=== PATIENT | female | born 1960 | race Caucasian/White ===

== ENCOUNTER → 2023-03-11 | Outpatient (CLI) | payer MEDICAID, SELFPAY ==
--- NOTE | 2023-03-11 14:25 | EMB_PTH ---
PATIENT: ANTOINE GALARZA [facility] U#:[id number] AGE/SX: 62/F ROOM: RE03/11/[address]: KRZYSZTOF Stewart : 1960 BED: DIS: 03/11/2023 SPEC #: [id number] RECD: 03/11/23 15:24 STATUS: CINDY REStnaislav #: [id number] MAKI: 03/11/23 14:[address]: Tammy Escobar NP DEPT: SURGICAL PATHOLOGY RECD BY: Krystal Peña ENTERED: 03/12/23 10:03 SP TYPE: ENDOM BX/C SANDRA DR: KRZYSZTOF Arriaga Tissues: A - Endometrium, NOS B - Uterine cervix, NOS Procedures: Surgery Specimen Level IV HEADER OPERATION: Endometrial biopsy, Polypectomy PRE-OP DIAGNOSIS: Abnormal uterine bleeding TISSUE SUBMITTED: A - Endometrial lining, B - Cervical polyp MICROSCOPIC DIAGNOSIS A. Endometrial biopsy: Strips of benign endometrial epithelium and fragments of superficial benign endometrial tissue, blood and mucous. B. Cervical polyp, polypectomy: Inflamed benign mixed ecto- and endocervical polyp. DAWIT:sandra 03/13/2023 MICROSCOPIC DESCRIPTION Slides are reviewed. GROSS DESCRIPTION A - Received in fixative is one container labeled with the patient's name and designated endometrial lining. The specimen consists of multiple irregular fragments of pink mucoid tissue that in aggregate measure 2.5 x 0.5 x 0.1 cm. The specimen is totally submitted in one cassette. B - Received in fixative is one container labeled with the patient's name and designated cervical polyp. The specimen consists of a harris-pink polyp measuring 2.8 x 0.5 x 0.3 cm. The entire specimen is submitted in one cassette. / DAWIT:sandra 03/12/2023 TC:5 CPT: [id number] x2
[2023-03-18 06:07] LABS: HPV APTIMA, High Risk Positive (Negative); HPV Genotype 16, Aptima Negative (Negative); HPV Genotype 18,45 Aptima Negative (Negative)
== END | disposition home or self-care (01) ==
LOC: LABSPEC 15:48
PROVIDERS: PCP Nurse Practitioner Family; Referring Provider Nurse Practitioner Women's Health; Visit Provider Nurse Practitioner Women's Health
DX: Z12.4 Encounter for screening for malignant neoplasm of cervix (principal); N93.9 Abnormal uterine and vaginal bleeding, unspecified; N84.1 Polyp of cervix uteri
CPT/HCPCS: 87624; 88175; 88305; G0145

== ENCOUNTER → 2023-04-02 | Outpatient (CLI) | payer MEDICAID, SELFPAY ==
--- NOTE | 2023-04-02 14:59 | US_ITS ---
STUDY: ULTRASOUND OF THE FEMALE PELVIS - COMPLETE REASON FOR EXAM: Female, 62 years old. postmenopausal bleeding LMP: TECHNIQUE: Transabdominal and Transvaginal TECHNICAL QUALITY: Adequate. COMPARISON: None. FINDINGS: The uterus is anteverted and is in a midline position. The uterus measures 7.5 x 3.4 x 2.5 cm. Normal uterine cervix. The endometrium measures 1.5 mm in thickness, and is hyperechoic. There is no demonstrated endometrial mass. Diffusely heterogeneous uterus suggestive of diffuse leiomyomatous change. Focal fibroids are seen measuring 1.1 and 1.6 cm. The right ovary is visualized. The right ovary measures 2.3 x 1.2 x 0.7 cm. There is no right ovarian cyst or ovarian mass. There is no visualized right adnexal mass or complex lesion. There is normal arterial and normal venous vascularity. The left ovary is visualized. The left ovary measures 1.8 x 1.2 x 0.9 cm. There is a 1.1 cm cyst. There is no visualized left adnexal mass or complex lesion. There is normal arterial and normal venous vascularity. There is no fluid in the cul-de-sac. The pre void volume of the bladder was 396 ml. US/Transvaginal Non- IMPRESSION: Possible diffuse leiomyomatous change of the uterus with some small focal fibroids. Electronically Signed: Sherman Gordon MD at 18:14 EST ,
--- OUTSIDE RECORDS SUMMARY | 2023-04-02 17:38 | XMS RPT_ITS | CCD ---
Author Name Unknown Address [address] [place] [address] Organization [facility] Care Team Providers Care Commercial Loan Underwriter Name Role Phone Unavailable Primary Care Provider UnavailJIMMY Nye Attending Unavailable JIMMY OWEN Primary Care Unavailable GABBIE OSMAN DIRECTOR OF ENTERTAINMENT Consulting Unavailab le JIMMY OWEN Admitting Unavailable PROVIDER, UNKNOWN Consulting Unavailable PROVIDER, UNKNOWN Consulting Unavailable OWEN, JIMMY Primary Care Unavailable OWEN, JIMMY Admitting Unavailable MURALI, DR YIMI WILLIAMSON Consulting UnavailJIMMY Nye Attending Unavailable PROVIDER, UNKNOWN Consulting Unavailable PROVIDER, UNKNOWN Consulting Unavailable PROVIDER, UNKNOWN Consulting Unavailable OWEN, JIMMY Primary Care Unavailable OWEN, JMIMY Admitting Unavailable MURALI, DR YIMI WILLIAMSON Consulting Unavailabl e JIMMY OWEN Attending Unavailable PROVIDER, UNKNOWN Consulting Unavailable PROVIDER, UNKNOWN Consulting Unavailable PROVIDER, UNKNOWN Consulting Unavailable OWEN, JIMMY Primary Care Unavailable OWEN, JIMMY Admitting Unavailable MURALI, DR YIMI WILLIAMSON Consulting Unavailabl e BRAYDEN JIMMY Attending Unavailable PROVIDER, UNKNOWN Consulting Unavailable PROVIDER, UNKNOWN Consulting Unavailable PROVIDER, UNKNOWN Consulting Unavailable OWEN, JIMMY Primary Care Unavailable BRAYDEN, JIMMY Admitting Unavailable GABBIE OSMAN DIRECTOR OF ENTERTAINMENT Consulting Unavailab le JIMMY OWEN Attending Unavailable PROVIDER, UNKNOWN Consulting Unavailable PROVIDER, UNKNOWN Consulting Unavailable Allergies Allergy Classification Reported Allergen(s) Allergy Type Date of Onset Reaction(s) Facility (1 source) diphenhydrAMINE Drug Allergy [facility] Repository (1 source) Penicillin Drug Allergy [facility] Repository Problems Problem Classification Problem Date Documented Da te Episodic/Chronic Abdominal hernia (6 sources) Umbilical hernia without obstruction or gangrene; Translations: [Unilateral inguinal hernia, without obstruction or gangrene, not specified as recurrent] Onset: 02-13-2022 Episodic Results Test Name Value Interpretation Reference Range Facil ity Encounters Encounter Date Encounter Type Care Provider Facility Start: 03-22-2022 End: 03-22-2022 ambulatory JIMMY OWEN [facility] Start: 03-02-2022 End: 03-02-2022 ambulatory JIMMY OWEN [facility] Start: 02-13-2022 End: 02-13-2022 ambulatory JIMMY OWEN [facility] Start: 12-28-2021 Telephone encounter Carolina faye DO Work Phone: [facility] Obstetrics and Gynecology Plan of Treatment Date Care Activity Detail Author Start: 11-30-2021 Influenza vaccination INFLUENZA (#1) [facility] Start: 04-01-2021 DEPRESSION ASSESSMENT DEPRESSION ASS ESSMENT [facility] Start: 2011 SHINGRIX VACCINE (1 of 2) SHINGRIX V ACCINE (1 of 2) [facility] Start: 2006 COLOGUARD (FIT-DNA) COLOGUARD (FIT-D NA) [facility] Start: 2006 Colonoscopy COLONOSCOPY [facility] Start: 2006 COLORECTAL CANCER SCREENING COLORECTAL CANCER SCREENING [facility] Start: [address] [facility] Start: 2006 DIABETES SCREEN DIABETES SCREEN [facility] Start: 2006 FECAL OCCULT BLOOD FECAL OCCULT BLOO D [facility] Start: 2006 LIPID SCREEN LIPID SCREEN [facility] Start: 2006 SIGMOIDOSCOPY SIGMOIDOSCOPY [facility] Start: 2001 Mammography MAMMOGRAM [facility] Start: 1991 HPV TESTING HPV TESTING [facility] Start: 1982 PAP TESTING PAP TESTING [facility] Start: 1980 Urine microalbumin profile DTAP,TDAP ,TD (1 - Tdap) [facility] Start: 1979 HEPATITIS C SCREENING HEPATITIS C SC REENING [facility] Start: 1979 HIV SCREENING HIV SCREENING [facility] Start: 1961 COVID-19 VACCINE (#1) COVID-19 VACCI NE (#1) [facility] Payers Date Payer Category Payer Medicaid [id number] 1960 Unknown [id number] 1960 Unknown [id number] 1960 Unknown [id number] [id number] 1960 Unknown [id number] [id number] 1960 Unknown [id number] Social History Date Type Detail [facility] Start: 1960 Sex Assigned At Not on file C [facility] Clinical Note 03-12-2022 Note Date & Type Note Facility 03-12-2022 Note [facility] CONSULTATION REPORT NAME ACCOUNT SEX AGE ADMIT DISCHARGE PT MED. RECORD# NUMBER DATE DATE TYPE LULU MEEKS [id number] F [id number] 2 [id number] ROOM: DATE OF : 1960 DICTATING PHYSICIAN: Jimmy Owen REASON FOR CONSULTATION: Lulu Meeks is a 61-year-old lady who has had concern about umbilical hernia. HISTORY OF PRESENT ILLNESS: She had a CAT scan done. Returned for evaluation and discussion of her CAT scan results. The CT showed that she has an umbilical hernia with fat with an orifice of approximately 18 mm. In addition, she has bilateral inguinal hernias which have fat. The left is larger than the right. The orifice is 20 mm. She has no other worrisome findings. RECOMMENDATIONS: I reviewed the findings with her and I have explained to her repair of these hernias individually versus at one hospitalization. She wishes to have them all 3 done and I have explained the possibility of mesh versus other surgical repair. I have explained the surgery is done under anesthesia. I have explained the very urgent need for good pain control postoperatively. I have explained the surgical risks may include such risks as bleeding, pain, infection, scarring, damage to surrounding tissues, recurrence. I have explained possible mesh placement. I have explained the postoperative restrictions, activities, diet, medications, and followup plan and patient appears to understand. She states she wishes to have all three hernias done at one setting and arrangements will be made for this. She has no further questions. Dictated By: Jimmy Owen MD 03/11/2022 19:22 JOB #: [id number] Transcribed By: aubrey 03/11/2022 19:43 Electronically signed by: E-Sign Dr. 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 Received referral from patients pcp, i called patient to schedule but she said she was actually wanting to go to [place] so i told patient to go ahead and call her pcp to have then sent the referral to an OBGYN in [place]. documented in this encounter [facility] Summary Purpose Family History No Family History Records FoundNo Family History Records FoundNo Family History Records Found Advance Directives No Advanced Directives Records FoundNo Advanced Directives Records FoundNo Advanced Directives Records Found Additional Source Comments Source Comments (unrecognize d section and content) In the event this informatio n is protected by the Federal Confidentiality of Alcohol and Drug Abuse Patient Records regulations: The Federal rules restrict any use of the information to criminally investigate or prosecute any alcohol or drug abuse patient.[facility] Reason for Visit (unrecogniz ed section and content) INFORMATION SOURCE (unrecogn ized section and content) DATE CREATED AUTHOR AUTHOR'S ORGANIZ ATION 03/25/2022 [facility] DATE CREATED AUTHOR AUTHOR'S ORGANIZ ATION 03/28/2022 [facility] ([place]) FOR RECORDS PERTAINING TO PATIENTS WHO ARE OR HAVE BEEN ENROLLED IN A CHEMICAL DEPENDENCY/SUBSTANCEABUSE PROGRAM, SOME INFORMATION MAY BE OMITTED. This clinical summary was aggregated from multiple sources. Caution should be exercised in using it in the provision of clinical care. This summary normalizes information from multiple sources, and as a consequence, information in this document may materially change the coding, format and clinical context of patient data. In addition, data may be omitted in some cases. CLINICAL DECISIONS SHOULD BE BASED ON THE PRIMARY CLINICAL RECORDS. [facility]. provides no warranty or guarantee of the accuracy or completeness of information in this document.
== END | disposition home or self-care (01) ==
PROVIDERS: PCP Nurse Practitioner Family; Referring Provider Nurse Practitioner Women's Health; Visit Provider Nurse Practitioner Women's Health
DX: N95.0 Postmenopausal bleeding (principal); N84.1 Polyp of cervix uteri
CPT/HCPCS: 76830; 76856

== ENCOUNTER 2024-06-05 12:42 | Observation (INO) | payer MEDICAID, SELFPAY ==
--- NOTE | 2024-05-28 09:22 | EKG12_ITS ---
Test Reason : PRE OP Blood Pressure : */* mmHG Vent. Rate : 70 BPM Atrial Rate : 70 BPM P-R Int : 140 ms QRS Dur : 64 ms QT Int : 386 ms P-R-T Axes : 33 13 20 degrees QTcB Int : 416 ms Normal sinus rhythm Low voltage QRS Borderline ECG Confirmed by Hank Montano ([id number]), material expeditor ELBA LIZARRAGA ([id number]) on 05/29/2024 5:58:29 AM Referred By: Alice Cross Confirmed By: Hank Montano
[2024-05-28 10:03] LABS: Hematocrit 38.8 % (37-47); Hemoglobin 12.9 g/dL (12.0-15.0); Mean Corp Hgb Conc 33.2 g/dL (32-36); Mean Corpuscular Hgb 28.9 pg (27.0-32.0); Mean Platelet Vol. 10.1 fl (6.2-12.0); Platelet Count 282 K/mm3 (150-450); RBC Distribution Width CV 14.4 % (11.6-14.6); Red Blood Count 4.46 M/mm3 (4.2-5.4); White Blood Count 6.2 K/mm3 (4.4-11.0)
[2024-05-28 11:26] LABS: ALB/GLOB Ratio 1.5 RATIO (0.9-2.4); AST(SGOT) 30 U/L (<=31); Alanine Aminotransfer ALT/SGPT 30 U/L (<=34); Albumin, Serum 4.1 g/dL (3.4-4.8); Alkaline Phosphatase 61 U/L (35-104); Anion Gap 9 (5-15); BUN 14 mg/dL (4-19); BUN/Creat Ratio 15.8 RATIO (10-20); Calcium 9.2 mg/dL (7.6-11.0); Carbon Dioxide 25.5 mmol/L (22.0-29.0); Chloride 105 mmol/L (96-108); Creatinine, Serum 0.9 mg/dL (0.6-1.0); EST Glomerular Filtration Rate 74 (>60); Globulin 2.7 g/dL (2.2-4.2); Glucose 96 mg/dL (70-99); Potassium 4.1 mmol/L (3.3-5.1); Protein, Total 6.9 g/dL (5.9-8.4); Sodium Level 139 mmol/L (133-145); Total Bilirubin 0.52 mg/dL (0.00-1.30)
[2024-05-28 13:11] LABS: Magnesium 2.3 mg/dL (1.5-2.2)
--- NOTE | 2024-05-28 21:49 | PAT.ANE_ITS ---
Pre-Assessment Diagnosis/Proposed Procedure Planned Operative Procedure(s): TOTAL VAGINAL HYSTERECTOMY BSO POSS BILAT SALPINGOOPHERECTOMY PER DR QUARLES A&P REPAIR B SSLF CYSTO WITH BILAT URETHERAL CATH. PER DR FRIAS Anesthesia History Anesthesia History - air sampling and monitoring: Anesthesia History - air sampling and monitoring Hx Hospitalization No 05/25/24 08:51 Any Problems With Anesthesia Yes: SEVERE N,V 05/25/24 08:51 Cholinesterase deficiency No 05/25/24 08:51 You/Your Family Experience No 05/25/24 08:51 fever (hyperthermia) with Relationship Recent Exposure to Contagious Disease Does patient have nerve No 05/25/24 08:51 stimulator Patient instructed to have device shut off --Does patient have Pacemaker or ICD? When Was Last Pacemaker Check QUESTION #4 FULL TEXT: You/Your Family Experience fever (hyperthermia) with Anesthesia Last Oral Intake Last Oral intake: Last Oral Intake NPO since Meds taken in AM with sips of water? Meds patient instructed to take am of surgery PONV PONV - air sampling and monitoring: PONV - air sampling and monitoring Female Yes 05/25/24 08:51 HX of Motion Sickness No 05/25/24 08:51 HX of N/V After Surgery Yes 05/25/24 08:51 Non-Smoker Yes 05/25/24 08:51 Duration of Surgery greater Yes 05/25/24 08:51 than 60 minutes Number of Risk Factors 4 05/25/24 08:51 PONV Score Severe Risk 05/25/24 08:51 Height & Weight Height & Weight: Anesthesia: Height & Weight Height 5 ft 4 in 02/07/24 16:39 Respiratory Assessment Respiratory Assessment - air sampling and monitoring: Respiratory Tract Infection Hx - air sampling and monitoring Hx Respiratory Tract Infection No 05/25/24 08:51 STOP Sleep Apnea STOP Sleep Apnea - air sampling and monitoring: STOP Sleep Apnea - air sampling and monitoring Hx Hypertension No 05/25/24 08:51 Hx Sleep Apnea No 05/25/24 08:51 CPAP BIPAP Do you snore loudly (louder No 05/25/24 08:51 than talking or can be heard Do you often feel tired/ Yes 05/25/24 08:51 fatigued/ sleepy during daytime? Has anyone observed you stop No 05/25/24 08:51 breathing during sleep? STOP Results Negative 05/25/24 08:51 QUESTION #5 FULL TEXT : Do you snore loudly (louder than talking or can be heard through closed doors)? 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 Specify any problems Hx of Preganancy in last 3 No 05/25/24 08:51 Months Nurse Filling Out Transfusion DSCHRIBER 05/25/24 08:51 & Questions: Date: 05/25/24 05/25/24 08:51 Time: 08:53 05/25/24 08:51 Patient unable to answer at this time (ie. confused, unrespo /Reproduction History /Reproductive History - air sampling and monitoring: /Reproductive Hx- air sampling and monitoring Hx Now No 05/25/24 08:51 Gestational Age (in weeks): EDC: Hx Hx Para Hx Section SAB No 05/25/24 08:51 PFSH Medical History (Updated 05/25/24 @ 09:02 by Maki Riggs) Wears glasses Broken tooth Post-menopausal Anxiety Presence of pessary Bladder disease Migraine headache Injury of head and neck History of hiatal hernia Non-smoker Leg cramps History of pain when walking History of edema Meningitis GERD (gastroesophageal reflux disease) Scoliosis Home Medications ?Medication ?Instructions ?Recorded ?Last Taken ?Type THERMAMILL 1 cap PO DAILY 05/25/24 Unkn own History Allergy/AdvReac Type Severity Reaction Status Date / Time Penicillins Allergy Mild Rash Verified 05/25/24 08:46 diphenhydramine (From AdvReac Mild Other Verified 05/25/24 08:46 Benadryl) Family History Father Cancer Skin Aunt Cancer Skin Surgical History (Updated 05/25/24 @ 09:02 by Maki Riggs) Hx of ventral hernia repair S/P hernia repair H/O breast surgery S/P tonsillectomy Social History number of children: 2 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 Normal sinus rhythm. Low voltage QRS. Recommendation Anesthesia Recommendation Anesthesia recommendation: OPTIMIZED for anesthesia
--- NOTE | 2024-06-04 21:33 | HP.PCM_ITS ---
History and Physical Date of Admission: 06/05/24 Vital Signs 07/09/2413:47 02/07/2416:39 05/11/2514:13 Height 5 ft 4 in 5 ft 4 in 5 ft 4 in Weight: 160 lb 8 oz BMI 27.5 BP 138/85 H Intake Visit Reasons: Keep 20 min. TVHBS possible BSO Stefano combo Industrial Relations Specialist Required: No Is patient in pain?: No Allergies Penicillins Allergy (Mild, Verified 05/11/24 15:16) Rashdiphenhydramine (From Benadryl) Adverse Reaction (Mild, Verified 05/11/24 15:16) Other Medications ?Medication ?Instructions ?Recorded ?Confirmed ?Type doxycycline hyclate 50 mg capsule 50 mg PO QDAY 05/11/24 05/11/24 History Is last menstrual period known: No Post menopausal: Yes Patient : No : No PFSH Medical History Meningitis GERD (gastroesophageal reflux disease) Scoliosis Surgical History S/P hernia repair H/O breast surgery S/P tonsillectomy Family History Father Cancer SkinAunt Cancer Skin Social History number of children: 2 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 TVHBS possible LOTTIEO Stefano combo Details: ANTOINE GALARZA is a 63 year old who presents for preop visit, has uterovaginal prolapse, ready for surgery.combo case with stefano. Female Reproductive History Menopausal Symptoms: No night sweats History 2 Elective abortions Hx Para 2 Spontaneous abortions Hx # Term Pregnancies Ectopic pregnancies Hx # Pregnancies Multiple births # of living children 2 Past Pregnancies Del. Date Name GA/Weeks Outcome Route Bth Weight Infant Gen Labor Lgth Anesthesia Del Locatn Provider FOB Unknown Soila 1990 Unknown Martin 1992 ROS Const Constitutional: Denies fatigue, night sweats, weight gain or weight loss ENT ENT: Reports system reviewed and no additional complaints, except as documented Cardio Card: Denies chest pain Resp Resp: Denies cough or dyspnea GI GI: Reports as per HPI; Denies abdominal pain, constipation, nausea or vomiting : Reports urinary frequency and urinary incontinence; Denies nipple discharge, urinary hesitancy, urinary urgency, vaginal discharge, vaginal dryness, vaginal odor or vaginal pruritus Musc Musc: Denies arthralgias, back pain or muscle weakness Skin Skin/Breast: Denies alopecia, change in hair, dry skin, breast mass, breast pain, breast skin changes or nipple discharge Neuro Neuro: Reports system reviewed and no additional complaints, except as documented Psych Psych: Reports system reviewed and no additional complaints, except as documented Endo Endo: Denies cold intolerance, excessive sweating, heat intolerance or polydipsia Morales/Lymph Hematologic/Lymphatic: Denies easy bleeding, Denies easy bruising and Denies lymphadenopathy Exam Const General: cooperative and no acute distress Nutritional Appearance: well nourished Orientation: oriented x3 HENMT Head: normal to inspection and normocephalic Ears: hearing grossly normal bilaterally and external ears normal Nose: external nose normal and nares normal Face and sinus: normal facial exam Neck Neck: normal visual inspection and no lymphadenopathy Thyroid: thyroid normal Chest Chest palpation & inspection: normal inspection of the chest Resp Effort & Inspection: normal respiratory effort Auscultation: clear to auscultation bilaterally Cardio Rate: regular rate Rhythm: regular rhythm Heart Sounds: S1 normal and S2 normal GI Inspection: normal to inspection and non-distended Palpation: soft and no hepatosplenomegaly Musc Other: gross motor intact no deficits, full bilateral strength Skin General: no rashes or lesions noted Neuro General: patient alert, patient awake, moves all extremities and no focal motor deficits Motor: muscle tone normal throughout Extrem General: normal to inspection and no pedal edema Psych Appearance: grossly normal Mental Status: mental status grossly normal Affect: normal affect Speech and Movement: speech and movement normal Coding Level of Care Code No Charge Diagnoses Cystocele and rectocele with incomplete uterovaginal prolapse N81.2 Assessment and Plan Assessment and Plan (1) Cystocele and rectocele with incomplete uterovaginal prolapse: Status: Acute Comment: plan tvhbs combo case with stefano. Plan After discussing the patient's diagnosis and treatment plan options, patient wishes to proceed with surgical management. I have discussed with the patient the risks, benefits, and alternatives of the procedure which include but are not limited to risks of anesthesia, bleeding, infection, possible damage to bowel, bladder, or surrounding vasculature which could lead to additional surgery to evaluate any complications. Patient agrees to procedure and wishes to proceed. ACOG/uptodate references given for additional information regarding procedure.
[2024-06-05] VITALS (13 sets, daily range): BP systolic 104–136; BP diastolic 55–80; PULSE 53–71; RESP 12–17; TEMP 36.2–36.6; O2SAT 89–98; BMI 27.6
--- NOTE | 2024-06-05 09:29 | PRE.ANES_ITS ---
ASA Classification* ASA Classification ASA Classification: 2 Assessment & Plan Anesthesia* Anesthesia Assessment Anesthesia Assessment: Discussed sedation and/or anesthesia options, risks, benefits, and alternatives with patient/parents/legal guardian/POA. Questions invited. The patient/parents/legal guardian/POA seems to understand and agrees to proceed with anesthesia plan. Reviewed the physical assessment, medical history, allergy history and patient home medications list prior to surgery/procedure/anesthetic and documented any changes. Performed airway and anesthesia risk assessments. Anesthesia Type Anesthesia Type: General Anesthesia Focused Assessment* Airway Assessment Mouth opens: >3 cm Mallampati Score: II Focused Labs Anesthesia Preop lab: CBC WBC 6.2 K/mm3 (4.4-11.0) 05/28/24 09:43 05/28/24 RBC 4.46 M/mm3 (4.2-5.4) 05/28/24 09:43 05/28/24 Hgb 12.9 g/dL (12.0-15.0) 05/28/24 09:43 05/28/24 Hct 38.8 % (37-47) 05/28/24 09:43 05/28/24 Plt Count 282 K/mm3 (150-450) 05/28/24 09:43 05/28/24 CHEMISTRY Potassium 4.1 mmol/L (3.3-5.1) 05/28/24 09:43 05/28/24 Sodium 139 mmol/L (133-145) 05/28/24 09:43 05/28/24 Magnesium 2.3 mg/dL (1.5-2.2) H 05/28/24 09:42 05/28/24 BUN 14 mg/dL (4-19) 05/28/24 09:43 05/28/24 Creatinine 0.9 mg/dL (0.6-1.0) 05/28/24 09:43 05/28/24 Glucose 96 mg/dL (70-99) 05/28/24 09:43 05/28/24 COAG Pre-Assessment Diagnosis/Proposed Procedure Planned Operative Procedure(s): TOTAL VAGINAL HYSTERECTOMY BSO POSS BILAT SALPINGOOPHERECTOMY PER DR QUARLES A&P REPAIR B SSLF CYSTO WITH BILAT URETHERAL CATH. PER DR FRIAS Anesthesia History Anesthesia History - front office agent: Anesthesia History - front office agent Hx Hospitalization No 05/25/24 08:51 Any Problems With Anesthesia Yes: SEVERE N,V 05/25/24 08:51 Cholinesterase deficiency No 05/25/24 08:51 You/Your Family Experience No 05/25/24 08:51 fever (hyperthermia) with Relationship Recent Exposure to Contagious Disease Does patient have nerve No 05/25/24 08:51 stimulator Patient instructed to have device shut off --Does patient have Pacemaker or ICD? When Was Last Pacemaker Check QUESTION #4 FULL TEXT: You/Your Family Experience fever (hyperthermia) with Anesthesia Last Oral Intake Last Oral intake: Last Oral Intake NPO since Meds taken in AM with sips of water? Meds patient instructed to take am of surgery PONV PONV - front office agent: PONV - front office agent Female Yes 05/25/24 08:51 HX of Motion Sickness No 05/25/24 08:51 HX of N/V After Surgery Yes 05/25/24 08:51 Non-Smoker Yes 05/25/24 08:51 Duration of Surgery greater Yes 05/25/24 08:51 than 60 minutes Number of Risk Factors 4 05/25/24 08:51 PONV Score Severe Risk 05/25/24 08:51 Height & Weight Height & Weight: Anesthesia: Height & Weight Height 5 ft 4 in 06/04/24 10:07 Weight: 71.668 kg 06/04/24 10:07 Respiratory Assessment Respiratory Assessment - front office agent: Respiratory Tract Infection Hx - front office agent Hx Respiratory Tract Infection No 05/25/24 08:51 STOP Sleep Apnea STOP Sleep Apnea - front office agent: STOP Sleep Apnea - front office agent Hx Hypertension No 05/25/24 08:51 Hx Sleep Apnea No 05/25/24 08:51 CPAP BIPAP Do you snore loudly (louder No 05/25/24 08:51 than talking or can be heard Do you often feel tired/ Yes 05/25/24 08:51 fatigued/ sleepy during daytime? Has anyone observed you stop No 05/25/24 08:51 breathing during sleep? STOP Results Negative 05/25/24 08:51 QUESTION #5 FULL TEXT : Do you snore loudly (louder than talking or can be heard through closed doors)? 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 Specify any problems Hx of Preganancy in last 3 No 05/25/24 08:51 Months Nurse Filling Out Transfusion DSCHRIBER 05/25/24 08:51 & Questions: Date: 05/25/24 05/25/24 08:51 Time: 08:53 05/25/24 08:51 Patient unable to answer at this time (ie. confused, unrespo /Reproduction History /Reproductive History - front office agent: /Reproductive Hx- front office agent Hx Now No 05/25/24 08:51 Gestational Age (in weeks): EDC: Hx Hx Para Hx Section SAB No 05/25/24 08:51 Active Medications Active Medications: Current Medications Generic Name Dose Route Start Last Admin Trade Name Freq PRN Reason Stop Dose Admin Acetaminophen 1,000 mg 06/05/24 11:30 Acetaminophen 500 Mg Tablet PO 06/05/24 11:31 PREOP ONE Celecoxib 400 mg 06/05/24 11:30 Celecoxib 200 Mg Capsule PO 06/05/24 11:31 X1 ONE Dexamethasone Sodium Phosphate 8 mg 06/05/24 11:30 Dexamethasone 4 Mg/Ml Vial IV 06/05/24 11:31 X1 ONE Enoxaparin Sodium 40 mg 06/05/24 11:30 Enoxaparin 40 Mg/0.4 Ml Syringe SC 06/05/24 11:31 X1 ONE Gabapentin 600 mg 06/05/24 11:30 Gabapentin 600 Mg Tablet PO 06/05/24 11:31 PREOP ONE Lactated Ringer's 1,000 mls @ 40 mls/hr 06/05/24 11:30 IV .Q25H ALPHONSE Gentamicin Sulfate 270 mg/ 56.75 mls @ 100 mls/hr 06/05/24 11:30 Dextrose IVPB 06/05/24 12:04 PREOP ONE Magnesium Sulfate 1 gm/ 102 mls @ 408 mls/hr 06/05/24 11:30 Dextrose IV 06/05/24 11:44 X1 ONE Clindamycin Phosphate 900 mg in 50 mls @ 75 mls/hr 06/05/24 11:30 Cleocin IV 06/05/24 12:09 PREOP ONE Insulin Human Lispro 0 unit 06/05/24 11:30 Insulin Lispro 100 Unit/Ml Insuln.Pen SC 06/05/24 18:00 Q4H PRN PRN BG >/= 180, SEE PROTOCOL Protocol Ondansetron HCl 4 mg 06/05/24 11:30 Ondansetron 4 Mg/2 Ml Vial IV 06/05/24 11:31 X1 ONE Scopolamine HBr 1 patch 06/05/24 11:30 Scopolamine 1mg/72hr Patch TD 06/05/24 11:31 X1 ONE PFSH Medical History Wears glasses Broken tooth Post-menopausal Anxiety Presence of pessary Bladder disease Migraine headache Injury of head and neck History of hiatal hernia Non-smoker Leg cramps History of pain when walking History of edema Meningitis GERD (gastroesophageal reflux disease) Scoliosis Home Medications ?Medication ?Instructions ?Recorded ?Last Taken ?Type THERMAMILL 1 cap PO DAILY 05/25/24 0309/23 History Allergy/AdvReac Type Severity Reaction Status Date / Time Penicillins Allergy Mild Rash Verified 06/05/24 09:26 diphenhydramine (From AdvReac Mild Other Verified 06/05/24 09:26 Benadryl) Family History Father Cancer Skin Aunt Cancer Skin Surgical History Hx of ventral hernia repair S/P hernia repair H/O breast surgery S/P tonsillectomy Social History number of children: 2 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
[2024-06-05] MEDS: Lactated Ringers 1,000 ML 40 ML IV ×2 (09:49→15:39)
[2024-06-05] MEDS: Acetaminophen 500 MG Tablet 1000 MG PO ×2 (09:50→18:37)
[2024-06-05] MEDS: Celecoxib 200 MG Capsule 400 MG PO (09:50)
[2024-06-05] MEDS: Gabapentin 600 MG Tablet PO (09:50)
[2024-06-05] MEDS: Magnesium 1 GM over 15 mins IV (09:50)
[2024-06-05] MEDS: Enoxaparin 40 MG/0.4 ML Syringe SC (09:51)
[2024-06-05] MEDS: Scopolamine 1mg/72hr Patch 1 PATCH TD (09:51)
[2024-06-05] MEDS: Gentamicin IV 270 MG in Dextrose 5%-Water (50mL Bag) 50 ML 100 MG IVPB (09:52)
[2024-06-05 09:55] LABS: Hematocrit 36.4 % (37-47); Hemoglobin 12.2 g/dL (12.0-15.0); Mean Corp Hgb Conc 33.5 g/dL (32-36); Mean Corpuscular Volume 86.5 fL (81-99); Mean Platelet Vol. 10.3 fl (6.2-12.0); Platelet Count 294 K/mm3 (150-450); RBC Distribution Width CV 14.6 % (11.6-14.6); RBC Distribution Width SD 45.9 fl (35.1-43.9); Red Blood Count 4.21 M/mm3 (4.2-5.4); White Blood Count 5.9 K/mm3 (4.4-11.0)
[2024-06-05 10:03] LABS: Bedside Glucose 84 mg/dL (74-106)
--- NOTE | 2024-06-05 11:30 | HYST_PTH ---
PATIENT: ANTOINE GALARZA LOC: [facility] U#:[id number] AGE/SX: 64/F ROOM: [facility]325 RE06/05/[address]: Dr. Alice Cross MD : 1960 BED: 1 DIS: 06/06/2024 SPEC #: [id number] RECD: 06/05/24 17:25 STATUS: CINDY LOPES #: [id number] MAKI: 06/05/24 11:[address]: Alice Cross DEPT: SURGICAL PATHOLOGY RECD BY: Krystal Peña ENTERED: 06/08/24 08:26 SP TYPE: HYSTERECT OTHR DR: Kelli West MD Tissues: Uterus, NOS Procedures: Surgery Specimen Level V HEADER OPERATION: ERAS, total vaginal hysterectomy, bilateral salpingectomy PRE-OP DIAGNOSIS: Cystocele and rectocele with incomplete uterovaginal prolapse TISSUE SUBMITTED: Uterus, bilateral fallopian tubes MICROSCOPIC DIAGNOSIS Uterus and bilateral fallopian tubes, hysterectomy with bilateral salpingectomy: * Cervix: squamous metaplasia, mild hyperkeratosis, Nabothian cyst. * Endometrium: weakly proliferative and mildly disordered * Myometrium: leiomyoma (0.7 cm) * Separate nodule: leiomyoma (1.8 cm) * Fallopian tube #1: no specific pathologic change * Fallopian tube #2: no specific pathologic change MICROSCOPIC DESCRIPTION Slides are reviewed. GROSS DESCRIPTION Received in fixative is one container labeled with the patient's name and designated uterus and bilateral fallopian tubes. The specimen consists of a uterus and two undesignated fallopian tube segments. The uterus with cervix weighs 48 gm and measures 7.5 x 4 x 2 cm. The serosal surface is smooth. The ectocervical mucosa is unremarkable. The external os is round. The endocervical canal measures 2.5 cm in length and the endocervical mucosa is unremarkable. The triangular endometrial cavity measures 3 cm in length and 1 cm in width. The endometrium is harris, smooth, and measures 1 mm in thickness. Also in the container is one round whorled white nodule measuring 1.8 x 1.5 x 1.5cm. The first undesignated fallopian tube measures 1.5 x 1 x 0.5cm. It has a fimbriated end and a purple-harris serosal surface with no lesions identified. The second fallopian tube measures 1.8 x 0.8 x 0.5cm. It also has a fimbriated end and a smooth, shiny purple-harris serosal surface. RS8 mr 06/08/2024 Cassette summary: A1- anterior cervix A2- posterior cervix A3- A5- endomyometrium A6- nodule A7- first fallopian tube A8- second fallopian tube CPT: 79426
[2024-06-05] MEDS: Estrogens,Conj. 1 Tube 1 DOSE (12:14)
[2024-06-05] MEDS: Clindamycin 900 MG/50 ML BAG 75 MG IV (12:45)
--- NOTE | 2024-06-05 12:49 | PCM.DC ---
Discharge Instructions Diet Discharge Diet: No restrictions DC O2, CPAP, BIPAP needs Home O2 Discharge instructions: No Dressing / Incision May resume sexual activity in: 6 weeks Weight Bearing Status: Full weight bearing Dressing / Incision Call your doctor if your incision/area has: Continuous Slow Oozing, Sudden Increased Bleeding, Increased Pain/ Swelling, Increased Redness and Foul Smelling Discharge Call your doctor if you observe: Fever of 101 or Higher, Using more than 1 pad per hour, Shortness of breath, Chest pain and Uncontrolled pain Suture Line Care: Avoid Pulling/Pushing and Avoid Pinching/Bending Remove Dressing in: 1 week (if present) Cleanse incision/area with: Soap & Water and Keep Dressing Clean & Dry Follow Up Care Please Follow Up With: Alice Cross MD When: Call to make an appointment with your doctor for a postop visit in 2 and 6 weeks. Test Results: Test results from this visit will be discussed in further detail at your follow-up appointment, if applicable. Discharge Plan Admission Admit Date/Time: 06/05/24 12:42 Attending Provider: Alice Cross Primary Care Provider: Kelli West Discharge Orders/Prescriptions Prescriptions: New oxycodone-acetaminophen [Percocet] 5-325 mg tablet 1 tab PO Q4H PRN (Reason: pain) 7 Days Qty: 20 0RF naproxen 500 mg tablet 500 mg PO BID PRN PRN (Reason: Pain) Qty: 30 1RF sulfamethoxazole-trimethoprim 800-160 mg tablet 1 tab PO BID 3 Days Qty: 6 0RF No Action THERMAMILL 1 cap PO DAILY Other Ambulatory Orders: CBC-Complete Blood Cnt No Diff (Routine) Timeframe: [id number] Facility: [facility] - Location: Laboratory Ordered By: Dr. Alice Cross Referrals / Follow Up: Patricia Guerra BADGER DISTILLER OPERATOR, BADGER DISTILLER OPERATOR-C [Non-Staff] -
[2024-06-05] MEDS: dexAMETHasone 4 MG/ML Vial 8 MG IV (12:58)
--- NOTE | 2024-06-05 14:55 | PCM.OPRPT ---
Problems Associated Problem List Diagnoses (1) Cystocele and rectocele with incomplete uterovaginal prolapse: Multi Select Codes Urinary/Genital Urinary/Genital CPT Codes: 55441 TVH+BS/O <250gr uterus Operative Report (Standard) Operative Information Date of Procedure: 06/05/24 Pre-Operative Diagnosis: see problem list details Post-Operative Diagnosis: same Surgery/Procedure Performed: total vaginal hysterectomy bilateral salpingectomy qa tech: Yes Software Quality Tester: Sue Salmon Tasks completed by certified physical therapist assistant: Opening & closing and Retracting Type of Anesthesia: General RN Documented Start/Stop Times: Operation Date: 06/05/24 11:30 Case Time Into Pre-Op 06/05/24 08:57 Out of Pre-Op 06/05/24 12:40 Anesthesia Start 06/05/24 12:48 Into Room 06/05/24 12:48 Procedure Start 06/05/24 13:14 Procedure End 06/05/24 15:15 Anesthesia End 06/05/24 15:23 Out of Room 06/05/24 15:23 Into Recovery 06/05/24 15:31 Procedure Start Time: 13:14 Procedure Stop Time: 15:15 Select all DRAINS/GRAFTS/IMPLANTS that apply: Drains Drain details: mitchell Estimated Blood Loss: 250 Specimen collected: Yes Description of specimen(s) removed: uterus tubes Description of surgery: Patient was taken to the operating room and was placed under general anesthesia was prepped and draped in normal sterile fashion in the dorsal lithotomy position. Preoperative antibiotics and SCDs and Mitchell catheter was placed inside the bladder. Weighted speculum was placed in the vagina and the anterior and posterior lip of the cervix was grasped with 2 Cinthya clamps and circumferentially injected with dilute vasopressin. A circumferential incision was made with a scalpel and the posterior cul-de-sac was entered into sharply and a longneck speculum was placed. The anterior cul-de-sac was also dissected down and entered into sharply and the uterosacral ligaments were clamped cut and suture ligated bilaterally followed by the cardinal ligaments which were Clamped cut and suture ligated bilaterally with 0 Monocryl. The uterus serially descended and progressive bites were taken bilaterally up to the level of the utero-ovarian ligament bilaterally which was clamped transected and double ligated with 0 Monocryl suture and 0 Vicryl free tie. Bilateral fallopian tubes and ovaries were well visualized and noted be within normal limits and the bilateral fallopian tubes were transected across the base with a Shawna clamp and removed and sutured with 0 Vicryl suture. Excellent hemostasis was noted. The vagina was closed with [id number] 0 Vicryl pop offs including the posterior and anterior peritoneum in the reapproximation. Excellent hemostasis was noted. All instruments removed from the vagina clear urine was noted at the end of the procedure and then Dr. Agarwal began her portion of the procedure. Surgical Findings: prolapse, nl uterus tubes, and ovaries. Complications Complications: No
[2024-06-05] MEDS: Vasopressin 20 UNITS/ML Vial (15:00)
--- NOTE | 2024-06-05 15:28 | PCM.OPRPT ---
Operative Report (Standard) Operative Information Date of Procedure: 06/05/24 Pre-Operative Diagnosis: Incomplete uterovaginal prolapse and stress incontinence Post-Operative Diagnosis: Same Surgery/Procedure Performed: Anterior and posterior repair, mid urethral sling insertion, cystoscopy with bilateral ureteral catheterization oncology consultant: Yes Lamination Builder: Sue Salmon Tasks completed by first aid nurse: Retracting Additional assistant professor of psychology?: No Type of Anesthesia: General RN Documented Start/Stop Times: Operation Date: 06/05/24 11:30 Case Time Into Pre-Op 06/05/24 08:57 Out of Pre-Op 06/05/24 12:40 Anesthesia Start 06/05/24 12:48 Into Room 06/05/24 12:48 Procedure Start 06/05/24 13:14 Procedure End 06/05/24 15:15 Anesthesia End 06/05/24 15:23 Out of Room 06/05/24 15:23 Procedure Start Time: 13:14 Procedure Stop Time: 15:15 Select all DRAINS/GRAFTS/IMPLANTS that apply: Implanted device Implanted device details: Altis mid urethral sling Estimated Blood Loss: 25cc Specimen collected: No Description of surgery: The patient is a 64-year-old female with incomplete uterovaginal prolapse and stress urinary incontinence who presents for surgical intervention. Informed consent was obtained. She was taken to the operating room placed on the operating room table. Anesthesia monitored the head, neck, airway, IV access and vital signs throughout the case. Once anesthesia was appropriately administered, she was prepped and draped in usual sterile fashion and a Glynn catheter was inserted to straight drain emptying the bladder. Dr. Cross performed her portion of the procedure and close the vaginal cuff line. The Glynn catheter was then removed and the cystoscope was inserted through the urethra under direct visualization into the urinary bladder. The bladder was filled and no lacerations, injury, mass or erythema was identified. Each ureteral orifice was intubated carefully with a 5 Citizen [place] whistle-tip catheter that easily advanced to 20 cm bilaterally without evidence of injury or obstruction. At this time the cystoscope was removed and the Glynn catheter was reinserted with 10 cc in the balloon. The prolapse at this part portion of the procedure revealed a posterior and anterior defect that were minimal but enough for repair. There was no apical defect present. She had good perineal body support and the defect was more proximal posteriorly and the repair was started there. Vasopressin was injected submucosally and a midline incision was made. Sharp and blunt dissection was performed until the rectovaginal fascia was identified. Her anatomy was so good that the defect was able to be easily identified. The defect was closed with interrupted 2-0 Vicryl in a 2 layer repair. After this was completed, the midline incision was closed using running interlocking 2-0 Vicryl. A similar process was performed in the patient's anterior vaginal wall with care being taken to avoid entering into the urinary bladder. The defect here was small as well and her fascial was significantly strong. After the midline incision was closed with running interlocking 2-0 Vicryl, attention was turned towards the mid urethra. It was injected submucosally and a midline incision was made. Sharp and blunt dissection was performed on either side of the urethra with care being taken to avoid entrance into the urethra or the vaginal mucosa. Using the trocars provided, the tines of the sling were passed into the transobturator complexes bilaterally. The sling was then tensioned using the tensioning suture. Her urethra was very short in length and anatomically and the sling was placed in the mid urethra. It lay it flat against the urethra. The incision was closed using running interlocking 2-0 Vicryl. The Glynn catheter was removed and the cystoscope was inserted through the urethra and direct visualization. There was no evidence of injury to the urinary bladder or the urethra. The cystoscope was then removed and the Glynn catheter was reinserted with 10 cc in the balloon. The vagina was then packed with plain packing and estrogen cream. She was awakened and taken to the recovery room in good condition. There were no complications during this procedure. Surgical Findings: No ureteral or other injuries were identified. Complications Complications: No Admit VTE Documentation VTE Present on Admission: Yes VTE Mechan Device Prophylaxis: SCD's VTE Pharm Prophylaxis ordered?: Yes
--- NOTE | 2024-06-05 15:28 | PCM.POST.ANE ---
Anesthesia: Postop Eval I Current Vital Signs Temperature: 97.3 F Pulse Rate: 64 Blood Pressure: 104/55 Respiratory Rate: 16 Pulse Ox: 92 Oxygen Delivery Method: Room Air Assessment Airway patent: Yes Spontaneous unlabored respirations: Yes Mental status: Awake and Calm nausea: No Vomiting: No Anesthesia Complication: No Fluid Hydration Crystalloid volume administer (ml): 1,200 Total IV fluid infused: 1,200 Progress Note Anesthesia document: Postop Eval 1 completed: Yes
--- NOTE | 2024-06-05 15:36 | DCINST_ITS ---
Discharge Instructions Diet Discharge Diet: No restrictions Activity Discharge Activity: May Shower May resume sexual activity in: 8 weeks Weight Bearing Status: Full weight bearing Dressing / Incision Call your doctor if your incision/area has: Continuous Slow Oozing, Sudden Increased Bleeding, Increased Pain/ Swelling, Increased Redness and Foul Smelling Discharge Call your doctor if you observe: Fever of 101 or Higher, Using more than 1 pad per hour, Shortness of breath, Chest pain and Uncontrolled pain Suture Line Care: Avoid Pulling/Pushing and Avoid Pinching/Bending Cleanse incision/area with: Soap & Water and Keep Dressing Clean & Dry Follow Up Care Please Follow Up With: Alice Cross MD When: , the office will call to make follow-up arrangements. Test Results: Test results from this visit will be discussed in further detail at your follow- up appointment, if applicable. Discharge Plan Admission Admit Date/Time: 06/05/24 12:42 Attending Provider: Alice Cross Primary Care Provider: Kelli West Discharge Orders/Prescriptions Prescriptions: New oxycodone-acetaminophen [Percocet] 5-325 mg tablet 1 tab PO Q4H PRN (Reason: pain) 7 Days Qty: 20 0RF naproxen 500 mg tablet 500 mg PO BID PRN PRN (Reason: Pain) Qty: 30 1RF sulfamethoxazole-trimethoprim 800-160 mg tablet 1 tab PO BID 3 Days Qty: 6 0RF No Action THERMAMILL 1 cap PO DAILY Other Ambulatory Orders: CBC-Complete Blood Cnt No Diff (Routine) Timeframe: [id number] Facility: [facility] - Location: Laboratory Ordered By: Dr. Alice Cross Referrals / Follow Up: Patricia Guerra DIE CAST SUPERVISOR, DIE CAST SUPERVISOR-C [Non-Staff] - Disposition Disposition (needs filled in before D/C Order can be placed): Home, Self Care
--- NOTE | 2024-06-05 15:40 | POSTOPAN2_ITS ---
Anesthesia Postop Eval I Sum Postop Eval Completion status Anesthesia document: Postop Eval 1 completed: Yes Anesthesia Postop Eval I Summary Anesthesia Postop Eval I Summary: Anesthesia Postop Eval I: Assessment Summary Airway patent Yes 06/05/24 15:29 [email or web address] Spontaneous unlabored Yes 06/05/24 15:29 DESK [email or web address].MDOT respirations Mental status Awake,Calm 06/05/24 15:29 DESK [email or web address].MDOT nausea No 06/05/24 15:29 DESK OPERATOR.MDOT Vomiting No 06/05/24 15:29 DESK [email or web address] Anesthesia Postop Eval I: Fluid Summary Crystalloid volume administer 1,200 06/05/24 15:29 DESK [email or web address].MDOT (ml) Colloids volume administered ( ml) Blood Product volume administered (ml) Total IV fluid infused 1,200 06/05/24 15:29 DESK [email or web address] Anesthesia Postop Eval I: Summary Notes Anesthesia Complication No 06/05/24 15:29 DESK OPERATOR.MDOT Anesthesia Complication Comment: Post-operative progress note Anesthesia: Postop Eval II Evaluation Mental status: Awake Pain Level: 0 nausea: No Vomiting: No
--- NOTE | 2024-06-05 15:40 | PCM.POSTANE2 ---
Anesthesia Postop Eval I Sum Postop Eval Completion status Anesthesia document: Postop Eval 1 completed: Yes Anesthesia Postop Eval I Summary Anesthesia Postop Eval I Summary: Anesthesia Postop Eval I: Assessment Summary Airway patent Yes 06/05/24 15:29 PRODUCTION [email or web address] Spontaneous unlabored Yes 06/05/24 15:29 PRODUCTION [email or web address] respirations Mental status Awake,Calm 06/05/24 15:29 PRODUCTION [email or web address] nausea No 06/05/24 15:29 PRODUCTION [email or web address] Vomiting No 06/05/24 15:29 PRODUCTION [email or web address] Anesthesia Postop Eval I: Fluid Summary Crystalloid volume administer 1,200 06/05/24 15:29 PRODUCTION [email or web address].MDOT (ml) Colloids volume administered ( ml) Blood Product volume administered (ml) Total IV fluid infused 1,200 06/05/24 15:29 PRODUCTION [email or web address] Anesthesia Postop Eval I: Summary Notes Anesthesia Complication No 06/05/24 15:29 PRODUCTION [email or web address] Anesthesia Complication Comment: Post-operative progress note Anesthesia: Postop Eval II Evaluation Mental status: Awake Pain Level: 0 nausea: No Vomiting: No
--- NOTE | 2024-06-05 16:43 | SUR.PHASEI ---
THIS NURSE ATTEMPT TO CALL PATIENT'S MOTHER BUT SHE DID NOT ANSWER TO GIVE AN UPDATE.
[2024-06-05] MEDS: Ketorolac 30 MG/ML Syringe IV (18:37)
[2024-06-05] MEDS: 0.9% Saline Lock 10 ML Syringe IV (18:38)
[2024-06-05] MEDS: Docusate Sodium 100 MG Capsule PO (21:43)
[2024-06-06 00:52] VITALS: BP 117/64; PULSE 54; RESP 14; TEMP 36.6; O2SAT 95
[2024-06-06] MEDS: Acetaminophen 500 MG Tablet 1000 MG PO ×3 (00:55→11:56)
[2024-06-06] MEDS: Ketorolac 30 MG/ML Syringe IV ×3 (00:55→11:56)
[2024-06-06 05:53] VITALS: BP 128/68; PULSE 63; RESP 16; TEMP 36.6; O2SAT 96
[2024-06-06 06:23] VITALS: O2SAT 95
[2024-06-06 08:11] LABS: Hematocrit 38.9 % (37-47); Hemoglobin 12.9 g/dL (12.0-15.0); Mean Corp Hgb Conc 33.2 g/dL (32-36); Mean Corpuscular Hgb 28.9 pg (27.0-32.0); Mean Corpuscular Volume 87.2 fL (81-99); Mean Platelet Vol. 10.5 fl (6.2-12.0); Platelet Count 300 K/mm3 (150-450); RBC Distribution Width CV 14.6 % (11.6-14.6); RBC Distribution Width SD 46.5 fl (35.1-43.9); Red Blood Count 4.46 M/mm3 (4.2-5.4); White Blood Count 9.8 K/mm3 (4.4-11.0)
[2024-06-06 09:00] VITALS: BP 128/65; PULSE 72; RESP 18; TEMP 36.6; O2SAT 98
--- NOTE | 2024-06-06 09:16 | PCM.PN.GU ---
Subjective Subjective Up in the chair, just finished eating breakfast. No nausea, no uncontrolled pain. No complaints overnight. Objective Data Objective Data Vital Signs: Vital Signs Temp Pulse Resp BP Pulse Ox O2 Del Method O2 Flow Rate 97.8 F 63 16 128/68 H 96 Nasal Cannula 1 06/06/24 05:53 06/06/24 05:53 06/06/24 05:53 06/06/24 05:53 06/06/24 05:53 06/06/24 05:53 06/06/24 05:53 Oxygen Flow Rate (L/min) 1 Oxygen Delivery Method Nasal Cannula Weight: 73 kg Body Mass Index (BMI) 27.6 Intake & Output: Intake and Output for Last 24 Hours 06/04/24 06/05/24 06/06/24 23:59 23:59 23:59 Intake Total 1280.75 / 1730.75 1250 / 1250 Output Total 450 / 1300 1550 / 1550 Balance 830.75 / 430.75 -300 / -300 Lab / Micro Data 06/06/24 07:29 05/28/24 09:43 Labs: Laboratory Results - last 24 hr 06/05/24 09:25: POC Glucose 84 06/05/24 09:45: WBC 5.9, RBC 4.21, Hgb 12.2, Hct 36.4 L, MCV 86.5, MCH 29.0, MCHC 33.5, RDW Std Deviation 45.9 H, RDW Coeff of [place] 14.6, Plt Count 294, MPV 10.3 06/06/24 07:29: WBC 9.8, RBC 4.46, Hgb 12.9, Hct 38.9, MCV 87.2, MCH 28.9, MCHC 33.2, RDW Std Deviation 46.5 H, RDW Coeff of [place] 14.6, Plt Count 300, MPV 10.5 Physical Exam Narrative Abdomen soft, nontender nondistended. Glynn catheter draining clear yellow urine. Vaginal packing and Glynn catheter removed without incident. Packing was dry. SCDs in place. Const alert, oriented x3 and no apparent distress
[2024-06-06] MEDS: Docusate Sodium 100 MG Capsule PO (09:20)
[2024-06-06] MEDS: Enoxaparin 40 MG/0.4 ML Syringe SC (09:21)
== END 2024-06-06 14:51 | disposition home or self-care (01) ==
LOC: SDC 15:16 → MS3 15:16
PROVIDERS: Anesthesiology; Urology; Admitting Provider Obstetrics & Gynecology; PCP Student in an Organized Health Care Education/Training Program; Referring Provider Obstetrics & Gynecology; Visit Provider Obstetrics & Gynecology
PROC: (CPT 58260; principal; 2024-06-05 11:10)
PROC: (CPT 57260; 2024-06-05 11:10)
DX: N81.2 Incomplete uterovaginal prolapse (principal); D25.9 Leiomyoma of uterus, unspecified; N88.8 Other specified noninflammatory disorders of cervix uteri; K21.9 Gastro-esophageal reflux disease without esophagitis; M41.9 Scoliosis, unspecified; N36.42 Intrinsic sphincter deficiency (ISD); N39.46 Mixed incontinence; N95.2 Postmenopausal atrophic vaginitis; N32.81 Overactive bladder; R35.1 Nocturia
CPT/HCPCS: 58262; 00944; 57260; 57288; 36415; 80053; 82962; 83735; 85027; 86850; 86900; 86901; 88307; 93005; 94668; 96372; 96374; 96376; 99221; C1771; A4216; G0378; J2405; J3475